=== PATIENT | male | born 1990 | race Caucasian/White ===

== ENCOUNTER → 2022-10-04 | Outpatient (CLI) | payer BC ==
--- NOTE | 2022-10-04 14:25 | P.SLEEP ---
History of Present Illness DATE: 10/04/2022 CONSULTATION/NEW PATIENT EVALUATION HISTORY OF PRESENT ILLNESS/SLEEP-WAKE EVALUATION: 31 year old gentleman had been evaluated in the sleep center for possible obstructive sleep apnea hypopnea syndrome. SLEEP SCHEDULE: Usually sleep schedule from 10:30 PM to 6 AM on weekdays and until 6:30 AM on weekend. FALLING ASLEEP: No problems with falling asleep. DURING SLEEP: According to patient he has loud snoring and witnessed episodes of stop breathing during the sleep. Patient wakes up from sleep up to 2 times with 2 episodes of nocturia. No history of hypnogogical hallucinations, sleep paralysis, or cataplexy. DURING THE DAY/WAKE STATE: In the morning patient wake up tired, falling asleep during the day. [place] sleepiness scale is 10, which indicates sleepiness. Patient takes 1 nap at afternoon. PAST MEDICAL HISTORY: mostly negative. PAST SURGICAL HISTORY: wisdom tooth removed. MEDICATIONS: none. SOCIAL HISTORY: negative for smoking or using alcohol. FAMILY HISTORY: Heart problems, diabetes. REVIEW OF SYSTEMS: loud snoring, multiple awakenings from sleep, sleepiness. No fevers. No double vision. No recent chest pain. No shortness of breath. No abdominal pain. No bleeding episodes. No blood in urine. No seizure episodes. PHYSICAL EXAMINATION: GENERAL: A pleasant patient without any distress. VITAL SIGNS: BP 147/71 , HR 67 , RR 12 , weight 221.6 pounds, height 5 foot 10.5 inches, body mass index 31.2 . HEENT: PERRLA, EOMI. Evaluation of oropharynx showed tongue protrudes midline, low position of soft palate Mallampati 3. NECK: Supple. No JVD. Thyroid is not palpable. 15.5 inches in circumference. LUNGS: Clear to percussion and to auscultation. Good air exchange. No wheezing or rhonchi. HEART: S1, S2 regular. No murmurs, gallops or rubs. ABDOMEN: Soft and nontender. Bowel sounds are present. No organomegaly appreciated. EXTREMITIES: No clubbing or cyanosis. EDUCATIONAL RESOURCE COORDINATOR: Awake, alert, and oriented x3. Cranial nerves 2 to 7 intact. There is no fasciculation or atrophy noted. No focal deficits observed. ASSESSMENT: 1. loud snoring, multiple awakenings from sleep, low position of soft palate Mallampati 3, sleepiness [place] Sleepiness Scale is 10. Obstructive sleep apnea hypopnea syndrome. 2. restriction of nasal breathing. 3. increased blood pressure in the office today. 4. mild obesity by body mass index. PLAN: 1. Home sleep apnea test for evaluation of patient's breathing during sleep. 2. CPAP/BiPAP titration if sleep study confirms obstructive sleep apnea- hypopnea syndrome. 3. Preferable position during sleep on the side. 4. No driving if patient feels any sleepiness. Patient is aware of civil and criminal liability for unsafe driving. 5. Sleep hygiene with regular sleep time for at least 7.5-8 hours. 6. Watching weight. Thank you very much for referring this patient for consultation. Sincerely, Praneeth Mosley MD, PhD, FAASM. Diplomat of [place] [employer], Sleep Medicine Board by [place] [employer] [place] [employer] Research Engineer [employer] [facility] [place] Sleep Note - Sleep Note Sleep Note: Temperature: Pulse Rate: Respiratory Rate: Blood Pressure: SpO2: Height: Weight: BMI: Neck Circumference:
== END ==
LOC: 3 N SLEEP 13:47
PROVIDERS: ATTEND Internal Medicine
DX: G47.33 Obstructive sleep apnea (adult) (pediatric) (principal); E66.9 Obesity, unspecified; R03.0 Elevated blood-pressure reading, without diagnosis of hypertension; Z99.89 Dependence on other enabling machines and devices; Z68.31 Body mass index [BMI] 31.0-31.9, adult
CPT/HCPCS: 99211

== ENCOUNTER → 2023-10-25 | Outpatient (CLI) | payer BC ==
[2023-10-25 13:15] VITALS: BP 113/63; PULSE 66; RESP 16; TEMP 97.8
--- NOTE | 2023-10-25 13:36 | P.PROGSL ---
Subjective DATE: 10/25/2023 FOLLOW UP VISIT. 52-year-old gentleman return to sleep center for evaluation of possible obstructive sleep apnea hypopnea syndrome. Patient had sleep study 1 year ago but at that time home sleep apnea testing was malfunctioning. At that time patient was recommended to repeat home sleep apnea test, but for different reason it was not done. Patient continued to have loud snoring, witnessed episodes of stop breathing during the sleep and sleepiness during the day. [place] sleepiness scale increased to 11. MEDICATIONS: None at the present time During physical exam: GENERAL: A pleasant patient without any distress. VITAL SIGNS: Please see below, weight 231 pounds, BMI 32.2. HEENT: PERRLA, EOMI, restriction of nasal breathing, low position of soft palate Mallampati 3. NECK: Supple. No JVD. LUNGS: Clear to percussion and to auscultation. Good air exchange. No wheezing or rhonchi. HEART: S1, S2 regular. ABDOMEN: Soft and nontender. EXTREMITIES: No clubbing or cyanosis. AMMUNITION OFFICER: Awake, alert, and oriented x3. No focal deficit. Impressions: 1. Loud snoring, witnessed episodes of stop breathing during the sleep by , low position of soft palate Mallampati 3, sleepiness during the day for sleepiness scale increased to 11. Obstructive sleep apnea hypopnea syndrome. 2. Restriction of nasal breathing. 3. Obesity, BMI 32.2, although most probably related to the muscles.. Plan: 1. Home sleep apnea test for evaluation of patient breathing during the sleep to confirm obstructive sleep apnea hypopnea syndrome 2. Sleep hygiene with regular time in bed for at least 8 hours. 3. Following plan after reading sleep study. 4. Precautions related to driving. No driving if feel any sleepiness. Patient is aware about civil and criminal liability for unsafe driving, promised to follow recommendations. 5. Preferable position during the sleep on the side. Thank you very much for allowing me to participate in the management of your patient. Praneeth Mosley MD, PhD, FAASM. Diplomat of [place] [employer], Sleep Medicine Board by [place] [employer] Project Manager of [facility] [employer] cc: Kunal Lawton DO Objective - Vital Signs Vital Signs: Vital Signs Temp 97.8 F 10/25/23 13:14 Pulse 66 10/25/23 13:14 Resp 16 10/25/23 13:14 BP 113/63 10/25/23 13:14 Pulse Ox 97 10/25/23 13:14 FiO2 Intake & Output 10/24/23 10/25/23 10/25/23 18:59 06:59 18:59 Weight 104.78 kg
== END ==
LOC: 3 N SLEEP 13:04
PROVIDERS: ATTEND Internal Medicine
DX: G47.33 Obstructive sleep apnea (adult) (pediatric) (principal); E66.9 Obesity, unspecified; R06.89 Other abnormalities of breathing; Z68.32 Body mass index [BMI] 32.0-32.9, adult
CPT/HCPCS: 99212

== ENCOUNTER → 2024-01-21 | Outpatient (CLI) | payer BC ==
--- NOTE | 2024-01-24 14:30 | P.PCN ---
Description of Procedure: CLINICAL: A home sleep apnea test has been done for confirmation of possible obstructive sleep apnea-hypopnea syndrome. DESCRIPTION OF PROCEDURE: RESULTS: Recording time was 6 hours 47 minutes. Evaluation time was 6 hours 43 minutes. Evaluation time is sufficient for making conclusion about results of the test. Raw data of sleep recording has been reviewed and is adequate. Respiratory channel showed 6 apneas and 43 hypopneas. Apnea-hypopnea index was 7.5 per hour. Pulse rate in the range between minimum 49, maximum 96, average 65 by computer calculation. Lowest desaturation was 88%. IMPRESSION: 1. Obstructive Sleep Apnea Hypopnea Syndrome in mild range. Patient presents with symptoms of excessive daytime sleepiness with [place] Sleepiness Scale increased to 10 and awakenings from sleep. Please see other impressions from consultation. PLAN: 1. The patient will be started on auto-PAP treatment for correction of r espiratory abnormallities during sleep. 2. I will see patient for follow up visit to discuss results of the test, evaluate clinical response on treatment with PAP therapy and make any necessary adjustments related to mask fitting, pressure, and humidification. 3. Watching weight. 4. Sleep hygiene with regular time in bed for at least 8 hours. 5. No driving if feeling any sleepiness. Thank you very much for allowing me to participate in the management of your patient. Sincerely, Praneeth Mosley MD, PhD, FAASM Diplomat of [place] [employer] Sleep Medicine Board of [place] [employer] Chief Lending Officer of [facility] [place] cc: Kunal Dominique DO
== END ==
LOC: 3 N SLEEP 10:29
PROVIDERS: ATTEND Internal Medicine
DX: G47.33 Obstructive sleep apnea (adult) (pediatric) (principal)